=== PATIENT | female | born 1955 | race Caucasian/White ===

== ENCOUNTER → 2017-04-13 | Outpatient (CLI) | payer MEDICAID ==
[~2017-04-13] MED LIST: ALBU18HF2 IH; ASPI-1159 PO; GABA-531 PO; GLIP5TAB12 PO; IBUP-2028 PO; OCD PO; OMEP20CA10 PO; SIMV10TA6 PO
== END | disposition home or self-care (01) ==
LOC: RAD 10:37
PROVIDERS: ATTEND Neurological Surgery
DX: M48.07 Spinal stenosis, lumbosacral region (principal); M48.061 Spinal stenosis, lumbar region without neurogenic claudication
CPT/HCPCS: 72100